=== PATIENT | male | born 1950 | race Hispanic/Latino ===

== ENCOUNTER 2017-07-31 06:58 | Day surgery (SDC) | payer OTHER ==
[2017-07-30 12:03] VITALS: BP 108/58
[2017-07-30 12:10] LABS: BASOPHILS % (AUTO) 1.5 % (0.0-5.0); EOSINOPHILS % (AUTO) 3.7 % (0.0-8.0); LYMPHOCYTES % (AUTO) 20.4 % (21.0-51.0); MEAN CORPUSCULAR HEMOGLOBIN 27.5 pg (27.0-33.0); MEAN CORPUSCULAR HGB CONC 33.8 g/dL (32.0-36.0); MEAN CORPUSCULAR VOLUME 81.3 fL (79-99); NEUTROPHILS % (AUTO) 64.4 % (40.0-77.0); NUCLEATED RED BLOOD CELLS 0.1 % (0.0-0.19); PLATELET COUNT (AUTO) 194 K/uL (130-400); RED BLOOD CELL COUNT(AUTO) 4.19 MIL/uL (4.50-6.20); RED CELL DISTRIBUTION WIDTH 16.8 % (11.0-15.5); WHITE BLOOD COUNT (AUTO) 5.3 K/uL (4.8-10.8)
[2017-07-30 12:14] LABS: APPEARANCE,URINE Clear (CLEAR); BILIRUBIN,URINE Negative (NEGATIVE); COLOR,URINE Yellow (YELLOW); GLUCOSE, URINE (UA) >=1000 mg/dL (NEGATIVE); KETONES,URINE Negative (NEGATIVE); LEUKOCYTE ESTERASE ,URINE Negative (NEGATIVE); NITRATE,URINE Negative (NEGATIVE); OCCULT BLOOD,URINE Negative (NEGATIVE); PROTEIN,URINE Negative (NEGATIVE); UROBILINOGEN,URINE 0.2 mg/dL (0.2-1.0)
[2017-07-30 12:16] LABS: CREATININE 1.7 mg/dL (0.5-1.5); POTASSIUM 5.2 mmol/L (3.5-5.1)
[2017-07-30 12:34] LABS: INR 0.94 (0.85-1.15); PARTIAL THROMBOPLASTIN TIME 26.1 SEC (26.3-35.5); PROTHROMBIN TIME 9.9 SEC (9.6-11.6)
[2017-07-30 12:35] LABS: WBC,URINE 0-1 /HPF (0-1)
[2017-07-30 12:36] LABS: BACTERIA,URINE Rare /HPF (None Seen); SQUAMOUS EPITHELIAL CELL,UR Rare /HPF (0-2); YEAST,URINE BUDDING Few /HPF (None Seen)
[2017-07-31] VITALS (10 sets, daily range): BP systolic 124–179; BP diastolic 63–96
[~2017-07-31] VITALS: Ht 172.7 cm; Wt 51.9 kg
[2017-07-31] MEDS: SODIUM CHLORIDE 0.9% 1000ML 1,000 ML IV SCH ×2 (08:30→13:41)
[2017-07-31] MEDS ORDERED: ASPI-555 PO (08:32)
[2017-07-31] MEDS ORDERED: RENEXA PO (08:40)
[2017-07-31] MEDS ORDERED: GLIP5TAB97 PO (08:40)
[2017-07-31] MEDS ORDERED: NITR0.4T50 SL (08:40)
[2017-07-31] MEDS ORDERED: METF10004 PO (08:40)
[2017-07-31] MEDS ORDERED: ALEN70TA47 PO (08:40)
[2017-07-31] MEDS ORDERED: METO-391 PO (08:40)
[2017-07-31] MEDS ORDERED: ISOS60TA4 PO (08:40)
[2017-07-31] MEDS ORDERED: ATOR40TA71 PO (08:40)
[2017-07-31] MEDS ORDERED: PIOG30TA70 PO (08:40)
[2017-07-31] MEDS: INSULIN HUMULIN R 100 UNIT/ML 3ML ONE ×2 (10:12→10:14)
[2017-07-31] MEDS ORDERED: INSULIN HUMULIN R 100 UNIT/ML 3ML SQ SCH ×2 (10:15→21:00)
[2017-07-31] MEDS ORDERED: ISOVUE-370 50ML VIAL IV ONE ×2 (13:38→16:18)
[2017-07-31] MEDS ORDERED: NITROGLYCERIN 5 MG/ML 10 ML VIAL IV ONE (13:38)
[2017-07-31] MEDS ORDERED: BIVALIRUDIN 250 MG/VIAL IV ONE (13:38)
[2017-07-31] MEDS ORDERED: LIDOCAINE HCL 2% 20ML ONE (13:38)
[2017-07-31] MEDS ORDERED: IOPAMIDOL-370 100 ML VIAL IV ONE ×2 (13:40→15:41)
[2017-07-31] MEDS ORDERED: MIDAZOLAM HCL 1 MG/ML 2ML VIAL ONE (15:41)
[2017-07-31] MEDS ORDERED: CLOPIDOGREL BISULFATE 300 MG TAB ONE (16:29)
[2017-07-31] MEDS ORDERED: ASPIRIN 325MG EC TAB 325 MG TABLET.DR PO ONE ×2 (16:29→16:31)
[2017-07-31] MEDS ORDERED: ACETAMINOPHEN 325 MG TAB PO PRN (17:30)
[2017-07-31] MEDS ORDERED: GLUCAGON 1MG KIT 1 MG ML IM PRN (17:30)
[2017-07-31] MEDS ORDERED: DEXTROSE 50%-WATER 50 ML DISP.SYRIN IV PRN (17:30)
== END 2017-07-31 23:00 | disposition home or self-care (01) ==
LOC: DAH 06:58
PROVIDERS: ATTEND Internal Medicine Cardiovascular Disease
DX: I25.708 Atherosclerosis of coronary artery bypass graft(s), unspecified, with other forms of angina pectoris (principal); E11.59 Type 2 diabetes mellitus with other circulatory complications; E78.5 Hyperlipidemia, unspecified; I10 Essential (primary) hypertension; Z95.1 Presence of aortocoronary bypass graft; Z90.49 Acquired absence of other specified parts of digestive tract; Z79.01 Long term (current) use of anticoagulants; Z79.899 Other long term (current) drug therapy; Z79.84 Long term (current) use of oral hypoglycemic drugs; Z79.4 Long term (current) use of insulin; R06.09 Other forms of dyspnea; R94.39 Abnormal result of other cardiovascular function study; I21.19 ST elevation (STEMI) myocardial infarction involving other coronary artery of inferior wall; Z95.5 Presence of coronary angioplasty implant and graft
CPT/HCPCS: 36415; 71045; 80048; 81001; 82948 ×2; 85025; 85610; 85730; 93005; 93459; 96360; 96361; A4606; C1725 ×2; C1760; C1769; C1874; C1887 ×2; C1894; C9604; J0583; J1644; J1815; J3490 ×2; J7030 ×2; Q9967 ×3; J2250

== ENCOUNTER 2023-05-31 12:18 | Inpatient (IN) | payer OTHER ==
[~2023-05-31] VITALS: Ht 167.6 cm; Wt 53.7 kg
[~2023-05-31 12:18] MED LIST: ALEN70TA80 PO; ASPI-556 PO; ATOR40TA71 PO; GLIP5TAB97 PO; ISOS60TA77 PO; METF-446 PO; METO-391 PO; NITR0.4T50 SL; PIOG30TA70 PO; RENEXA PO
[2023-05-31] MEDS ORDERED: INSU200I4 SQ (12:41)
[2023-05-31] MEDS ORDERED: EMPA25TA PO (12:41)
[2023-05-31] MEDS ORDERED: FAMO20TA8 PO (12:41)
[2023-05-31] MEDS ORDERED: INSU200I SQ (12:41)
[2023-05-31] MEDS ORDERED: OMEP40CA21 PO (12:41)
[2023-05-31] MEDS ORDERED: ATOR-2 PO (12:41)
[2023-05-31] MEDS ORDERED: CLOP75TA32 PO (12:41)
[2023-05-31] MEDS ORDERED: METO-408 PO (12:41)
[2023-05-31 13:33] LABS: MEAN CORPUSCULAR HEMOGLOBIN 26.3 pg (27.0-33.0); MEAN CORPUSCULAR HGB CONC 31.9 g/dL (32.0-36.0); MEAN CORPUSCULAR VOLUME 82.4 fL (79-99); RED BLOOD CELL COUNT(AUTO) 3.76 MIL/uL (4.50-6.20); RED CELL DISTRIBUTION WIDTH 16.3 % (11.0-15.5); WHITE BLOOD COUNT (AUTO) 9.2 K/uL (4.8-10.8)
[2023-05-31 13:56] LABS: CREATININE 1.6 mg/dL (0.5-1.3); POTASSIUM 4.7 mmol/L (3.5-5.1)
[2023-05-31 14:09] LABS: ALBUMIN 2.8 g/dL (3.5-5.0); BILIRUBIN,TOTAL 0.6 mg/dL (0.2-1.0); THYROID STIMULATING HORMONE 1.91 uIU/mL (0.36-3.74); TOTAL PROTEIN, SERUM 6.3 g/dL (6.0-8.3)
[2023-05-31] MEDS ORDERED: ONDANSETRON 4MG INJ IVP PRN (15:30)
[2023-05-31] MEDS: PHARMACY COMMUNICATION MISC SCH (15:30)
[2023-05-31 15:47] LABS: INR <= 0.93 (0.85-1.15); PROTHROMBIN TIME 10.6 SEC (9.6-11.6)
[2023-05-31 15:48] LABS: PARTIAL THROMBOPLASTIN TIME 31.3 SEC (26.3-35.5)
[2023-05-31 15:52] LABS: % IRON SATURATION 7.3 % (30-44)
[2023-05-31 16:07] LABS: MAGNESIUM 2.4 mg/dL (1.80-2.40)
[2023-05-31] MEDS: PANTOPRAZOLE 40 MG/VIAL IVP SCH (16:12)
[2023-05-31] MEDS: ASPIRIN 81 MG EC TAB PO ONE (16:12)
[2023-05-31] MEDS: GUAIFENESIN-DM 200/20 MG 10 ML PO PRN (16:12)
[2023-05-31] MEDS: ENOXAPARIN SODIUM 60 MG/0.6 ML SQ SCH (16:13)
[2023-05-31] MEDS: FUROSEMIDE 20MG VIAL IV SCH (16:13)
[2023-05-31] MEDS: CEFTRIAXONE 1G VIAL IVPB SCH (16:13)
[2023-05-31 16:33] LABS: HEMOGLOBIN A1C 8.1 % (4.0-6.0)
[2023-05-31 16:40] VITALS: BP 116/71; PULSE 111; RESP 18
[2023-05-31 18:04] VITALS: O2SAT 93
[2023-05-31] MEDS: BUDESONIDE 0.5 MG/2 ML INH IH SCH (18:32)
[2023-05-31 18:34] VITALS: PULSE 104; RESP 18
[2023-05-31] MEDS: ACETAMINOPHEN 500 MG TABLET PO PRN (18:41)
[2023-05-31 19:15] VITALS: BP 98/61; PULSE 91; RESP 18
[2023-05-31 20:00] VITALS: O2SAT 93
[2023-05-31 20:02] LABS: CREATININE,URINE RANDOM 11.67 mg/dL (30-135)
[2023-05-31 20:16] LABS: PROTEIN,URINE RANDOM 6.1 mg/dL (0-11.9)
[2023-05-31] MEDS ORDERED: IPRATROPIUM 0.5 MG/2.5 ML INH IH PRN (20:30)
[2023-05-31 20:40] LABS: APPEARANCE,URINE CLEAR (CLEAR); BILIRUBIN,URINE NEGATIVE (NEGATIVE); COLOR,URINE COLORLESS (YELLOW); GLUCOSE, URINE (UA) >=1000 mg/dL (NEGATIVE); KETONES,URINE 5 mg/dL (NEGATIVE); LEUKOCYTE ESTERASE ,URINE 75 Leu/uL (NEGATIVE); NITRATE,URINE NEGATIVE (NEGATIVE); OCCULT BLOOD,URINE SMALL (NEGATIVE); PROTEIN,URINE NEGATIVE (NEGATIVE); UROBILINOGEN,URINE 0.2 mg/dL (0.2-1.0)
[2023-05-31 20:41] LABS: ADD UA MICROSCOPIC YES
[2023-05-31] MEDS: ATORVASTATIN 40 MG TABLET PO SCH (20:45)
[2023-05-31 20:47] LABS: MUCUS,URINE RARE LPF (None Seen); SQUAMOUS EPITHELIAL CELL,UR RARE /HPF (0-2)
[2023-05-31 23:47] LABS: SARS-CoV-2, RNA, NAAT NEGATIVE SARS CoV-2 (NEGATIVE)
[2023-05-31 23:50] LABS: INFLUENZA TYPE A Negative For Type A (NEGATIVE); INFLUENZA TYPE B Negative For Type B (NEGATIVE)
[2023-06-01] VITALS (12 sets, daily range): BP systolic 103–125; BP diastolic 61–72; PULSE 87–100; RESP 18–20; O2SAT 93–96
[2023-06-01 04:07] LABS: BASOPHILS # (AUTO) 0.09 K/uL (0.00-0.20); BASOPHILS % (AUTO) 0.8 % (0.0-5.0); EOSINOPHILS # (AUTO) 0.21 K/uL (0.00-0.70); EOSINOPHILS % (AUTO) 1.9 % (0.0-8.0); HEMATOCRIT 35.1 % (42-54); IMMATURE GRANULOCYTE ABSOLUTE 0.04 K/uL (0-1); LYMPHOCYTES # (AUTO) 1.1 K/uL (1.0-4.8); LYMPHOCYTES % (AUTO) 10.2 % (21.0-51.0); MEAN CORPUSCULAR HEMOGLOBIN 26.5 pg (27.0-33.0); MEAN CORPUSCULAR HGB CONC 31.1 g/dL (32.0-36.0); MEAN CORPUSCULAR VOLUME 85.4 fL (79-99); MONOCYTES # (AUTO) 1.4 K/uL (0.1-1.0); MONOCYTES % (AUTO) 12.6 % (3.0-13.0); NEUTROPHILS % (AUTO) 74.1 % (40.0-77.0); PLATELET COUNT (AUTO) 217 K/uL (130-400); RED BLOOD CELL COUNT(AUTO) 4.11 MIL/uL (4.50-6.20); RED CELL DISTRIBUTION WIDTH 16.4 % (11.0-15.5); WHITE BLOOD COUNT (AUTO) 10.8 K/uL (4.8-10.8)
[2023-06-01 04:26] LABS: BILIRUBIN,TOTAL 0.7 mg/dL (0.2-1.0); CREATININE 1.8 mg/dL (0.5-1.3); MAGNESIUM 2.3 mg/dL (1.80-2.40); POTASSIUM 4.7 mmol/L (3.5-5.1); TOTAL PROTEIN, SERUM 6.9 g/dL (6.0-8.3)
[2023-06-01] MEDS: METOPROLOL SUCCINATE 25 MG TAB.SR.24H PO SCH (08:59)
[2023-06-01] MEDS: Vitamin B Complex/Vit C/Folic Acid PO SCH (08:59)
[2023-06-01] MEDS: ASPIRIN 81MG CHEW TAB PO SCH (08:59)
[2023-06-01] MEDS: CLOPIDOGREL 75MG TAB PO SCH (08:59)
[2023-06-01] MEDS ORDERED: ENOXAPARIN SODIUM 40 MG/0.4 ML SYRINGE SQ SCH (09:00)
[2023-06-01] MEDS: ZOLPIDEM TARTRATE 5 MG TAB PO SCH (21:10)
[2023-06-02] VITALS (9 sets, daily range): BP systolic 106–125; BP diastolic 61–69; PULSE 81–98; RESP 18–20; O2SAT 93–96
[2023-06-02 04:18] LABS: MAGNESIUM 2.1 mg/dL (1.80-2.40); POTASSIUM 4.1 mmol/L (3.5-5.1)
[2023-06-02 04:24] LABS: BASOPHILS # (AUTO) 0.07 K/uL (0.00-0.20); BASOPHILS % (AUTO) 0.7 % (0.0-5.0); HEMATOCRIT 33.6 % (42-54); IMMATURE GRANULOCYTE ABSOLUTE 0.04 K/uL (0-1); LYMPHOCYTES % (AUTO) 9.4 % (21.0-51.0); MEAN CORPUSCULAR HEMOGLOBIN 26.6 pg (27.0-33.0); MEAN CORPUSCULAR HGB CONC 31.8 g/dL (32.0-36.0); MEAN CORPUSCULAR VOLUME 83.6 fL (79-99); MONOCYTES # (AUTO) 1.3 K/uL (0.1-1.0); MONOCYTES % (AUTO) 12.7 % (3.0-13.0); NEUTROPHILS # (AUTO) 7.8 K/uL (1.8-7.7); NEUTROPHILS % (AUTO) 75.8 % (40.0-77.0); PLATELET COUNT (AUTO) 215 K/uL (130-400); RED BLOOD CELL COUNT(AUTO) 4.02 MIL/uL (4.50-6.20); RED CELL DISTRIBUTION WIDTH 16.1 % (11.0-15.5); WHITE BLOOD COUNT (AUTO) 10.2 K/uL (4.8-10.8)
[2023-06-02 05:32] LABS: WBC MORPHOLOGY CONSISTENT W/DIFF
[2023-06-02 05:54] LABS: B-TYPE NATRIURETIC PEPTIDE 2150 pg/mL (0-100)
[2023-06-02] MEDS ORDERED: POTASSIUM CHLORIDE 20MEQ/100ML 100 ML IV PRN (06:30)
[2023-06-02] MEDS ORDERED: POTASSIUM CHLORIDE 10% ELIXIR 20 MEQ/15 ML UDCUP PO PRN (06:30)
[2023-06-02] MEDS ORDERED: GLUCAGON 1MG KIT 1 MG ML IM PRN (06:30)
[2023-06-02] MEDS: INSULIN HUMULIN R 100 UNIT/ML 3ML SQ SCH (06:38)
[2023-06-02] MEDS: DOXYCYCLINE HYCLATE 100 MG TABLET PO SCH (12:12)
[2023-06-02 14:41] LABS: CHOLESTEROL 135 mg/dL (<200); HDL CHOLESTEROL 70 mg/dL (29-71); LDL DIRECT 49 mg/dL (0-99); TRIGLYCERIDES 80 mg/dL (30-200)
[2023-06-02] MEDS: BENZONATATE 100 MG CAPSULE PO PRN (20:18)
[2023-06-03] VITALS (13 sets, daily range): BP systolic 102–118; BP diastolic 58–72; PULSE 75–94; RESP 17–20; O2SAT 84–97
[2023-06-03 03:39] LABS: BASOPHILS # (AUTO) 0.08 K/uL (0.00-0.20); BASOPHILS % (AUTO) 0.7 % (0.0-5.0); EOSINOPHILS # (AUTO) 0.48 K/uL (0.00-0.70); EOSINOPHILS % (AUTO) 4.3 % (0.0-8.0); HEMATOCRIT 34.1 % (42-54); IMMATURE GRANULOCYTE ABSOLUTE 0.05 K/uL (0-1); LYMPHOCYTES # (AUTO) 1.2 K/uL (1.0-4.8); LYMPHOCYTES % (AUTO) 10.2 % (21.0-51.0); MEAN CORPUSCULAR HEMOGLOBIN 26.7 pg (27.0-33.0); MEAN CORPUSCULAR VOLUME 83.6 fL (79-99); MONOCYTES # (AUTO) 1.3 K/uL (0.1-1.0); MONOCYTES % (AUTO) 11.8 % (3.0-13.0); NEUTROPHILS # (AUTO) 8.1 K/uL (1.8-7.7); NEUTROPHILS % (AUTO) 72.6 % (40.0-77.0); PLATELET COUNT (AUTO) 212 K/uL (130-400); RED BLOOD CELL COUNT(AUTO) 4.08 MIL/uL (4.50-6.20); RED CELL DISTRIBUTION WIDTH 16.2 % (11.0-15.5); WHITE BLOOD COUNT (AUTO) 11.2 K/uL (4.8-10.8)
[2023-06-03 03:48] LABS: CREATININE 1.9 mg/dL (0.5-1.3); MAGNESIUM 1.9 mg/dL (1.80-2.40); PHOSPHORUS 3.2 mg/dL (2.5-4.9); POTASSIUM 3.6 mmol/L (3.5-5.1)
[2023-06-03] MEDS: KCL 20 MEQ ERTAB PO PRN (04:43)
[2023-06-03] MEDS: MAGNESIUM 2GM PREMIX 50ML 50 ML IV PRN (04:44)
[2023-06-03] MEDS: ENOXAPARIN SODIUM 60 MG/0.6 ML SQ SCH (09:47)
[2023-06-03] MEDS: ACETYLCYSTEINE 10% 100MG/ML 4ML VIAL IH SCH (18:43)
[2023-06-03] MEDS: IPRATROPIUM 0.5 MG/2.5 ML INH IH SCH (18:44)
[2023-06-04] VITALS (14 sets, daily range): BP systolic 103–118; BP diastolic 59–72; PULSE 83–97; RESP 16–22; O2SAT 93–97
[2023-06-04 03:52] LABS: BASOPHILS # (AUTO) 0.07 K/uL (0.00-0.20); BASOPHILS % (AUTO) 0.7 % (0.0-5.0); EOSINOPHILS # (AUTO) 0.42 K/uL (0.00-0.70); HEMATOCRIT 32.5 % (42-54); IMMATURE GRANULOCYTE ABSOLUTE 0.04 K/uL (0-1); LYMPHOCYTES # (AUTO) 1.2 K/uL (1.0-4.8); LYMPHOCYTES % (AUTO) 11.3 % (21.0-51.0); MEAN CORPUSCULAR HEMOGLOBIN 26.4 pg (27.0-33.0); MEAN CORPUSCULAR HGB CONC 32.3 g/dL (32.0-36.0); MEAN CORPUSCULAR VOLUME 81.9 fL (79-99); MONOCYTES % (AUTO) 9.5 % (3.0-13.0); NEUTROPHILS # (AUTO) 7.8 K/uL (1.8-7.7); NEUTROPHILS % (AUTO) 74.1 % (40.0-77.0); PLATELET COUNT (AUTO) 253 K/uL (130-400); RED BLOOD CELL COUNT(AUTO) 3.97 MIL/uL (4.50-6.20); RED CELL DISTRIBUTION WIDTH 15.9 % (11.0-15.5); WHITE BLOOD COUNT (AUTO) 10.5 K/uL (4.8-10.8)
[2023-06-04 04:09] LABS: ALBUMIN 2.5 g/dL (3.5-5.0); BILIRUBIN,TOTAL 0.5 mg/dL (0.2-1.0); MAGNESIUM 2.6 mg/dL (1.80-2.40); POTASSIUM 4.1 mmol/L (3.5-5.1); TOTAL PROTEIN, SERUM 6.7 g/dL (6.0-8.3)
[2023-06-04] MEDS: MILRINONE-D5W 20 MG/100 ML 100 ML IV SCH (11:05)
[2023-06-04] MEDS: SODIUM CHLORIDE 3% FOR INHALATION 4 ML/AMP VIAL.NEB IH ONE (11:12)
[2023-06-04 14:54] LABS: CREATININE 2.1 mg/dL (0.5-1.3); POTASSIUM 3.9 mmol/L (3.5-5.1)
[2023-06-04] MEDS: LACTULOSE 20 GM/30 ML UDCUP PO ONE (15:31)
[2023-06-04] MEDS: ZOSYN 3.375GM +NS 50ML IV SCH (15:42)
[2023-06-04] MEDS: SODIUM CHLORIDE 7% INHALATION 4 ML VIAL.NEB IH ONE (18:27)
[2023-06-05] VITALS (15 sets, daily range): BP systolic 103–122; BP diastolic 57–66; PULSE 84–103; RESP 16–20; O2SAT 96
[2023-06-05 04:11] LABS: BASOPHILS # (AUTO) 0.07 K/uL (0.00-0.20); BASOPHILS % (AUTO) 0.8 % (0.0-5.0); EOSINOPHILS # (AUTO) 0.52 K/uL (0.00-0.70); EOSINOPHILS % (AUTO) 6.1 % (0.0-8.0); HEMATOCRIT 31.5 % (42-54); IMMATURE GRANULOCYTE ABSOLUTE 0.04 K/uL (0-1); LYMPHOCYTES # (AUTO) 1.1 K/uL (1.0-4.8); LYMPHOCYTES % (AUTO) 12.2 % (21.0-51.0); MEAN CORPUSCULAR HEMOGLOBIN 26.6 pg (27.0-33.0); MEAN CORPUSCULAR HGB CONC 32.7 g/dL (32.0-36.0); MEAN CORPUSCULAR VOLUME 81.4 fL (79-99); MONOCYTES % (AUTO) 11.9 % (3.0-13.0); NEUTROPHILS # (AUTO) 5.9 K/uL (1.8-7.7); NEUTROPHILS % (AUTO) 68.5 % (40.0-77.0); PLATELET COUNT (AUTO) 223 K/uL (130-400); RED BLOOD CELL COUNT(AUTO) 3.87 MIL/uL (4.50-6.20); WHITE BLOOD COUNT (AUTO) 8.6 K/uL (4.8-10.8)
[2023-06-05 04:33] LABS: ALBUMIN 2.1 g/dL (3.5-5.0); BILIRUBIN,TOTAL 0.5 mg/dL (0.2-1.0); CREATININE 1.9 mg/dL (0.5-1.3); MAGNESIUM 2.3 mg/dL (1.80-2.40); PHOSPHORUS 3.6 mg/dL (2.5-4.9); POTASSIUM 3.7 mmol/L (3.5-5.1); TOTAL PROTEIN, SERUM 5.8 g/dL (6.0-8.3)
[2023-06-05] MEDS: SODIUM CHLORIDE 3% FOR INHALATION 4 ML/AMP VIAL.NEB IH ONE ×3 (06:35→18:24)
[2023-06-05] MEDS ORDERED: RENAL DOSE IV PRN (11:30)
[2023-06-05] MEDS: FUROSEMIDE 20MG VIAL IV SCH (11:32)
[2023-06-05] MEDS: ZOSYN 3.375GM +NS 50ML IV SCH (18:13)
[2023-06-06] VITALS (17 sets, daily range): BP systolic 102–141; BP diastolic 58–74; PULSE 90–142; RESP 16–22; O2SAT 93–96
[2023-06-06 04:08] LABS: HEMATOCRIT 28.4 % (42-54); MEAN CORPUSCULAR HEMOGLOBIN 26.6 pg (27.0-33.0); MEAN CORPUSCULAR HGB CONC 33.1 g/dL (32.0-36.0); MEAN CORPUSCULAR VOLUME 80.2 fL (79-99); RED BLOOD CELL COUNT(AUTO) 3.54 MIL/uL (4.50-6.20); RED CELL DISTRIBUTION WIDTH 15.9 % (11.0-15.5)
[2023-06-06 04:33] LABS: BILIRUBIN,TOTAL 0.4 mg/dL (0.2-1.0); CREATININE 2.1 mg/dL (0.5-1.3); POTASSIUM 3.6 mmol/L (3.5-5.1); TOTAL PROTEIN, SERUM 5.7 g/dL (6.0-8.3)
[2023-06-06] MEDS: DIGOXIN 250 MCG/ML 2ML AMP IV ONE (06:47)
[2023-06-06] MEDS ORDERED: DILTIAZEM 125 MG/25 ML INJ 125 MG in 0.9%NACL 100ML 100 ML IV SCH (07:30)
[2023-06-06] MEDS: DILTIAZEM 25MG INJ IVP ONE (08:40)
[2023-06-06] MEDS ORDERED: PHARMACY COMMUNICATION MISC SCH (12:00)
[2023-06-06] MEDS: TRESIBA 200 UNIT/ML SQ SCH (21:00)
[2023-06-06] MEDS: DICLOFENAC TOPICAL TP PRN (22:12)
[2023-06-07] VITALS (14 sets, daily range): BP systolic 101–136; BP diastolic 56–82; PULSE 98–110; RESP 16–22; O2SAT 93–97
[2023-06-07 03:40] LABS: MEAN CORPUSCULAR HEMOGLOBIN 26.4 pg (27.0-33.0); MEAN CORPUSCULAR HGB CONC 33.1 g/dL (32.0-36.0); MEAN CORPUSCULAR VOLUME 79.7 fL (79-99); RED BLOOD CELL COUNT(AUTO) 3.64 MIL/uL (4.50-6.20); RED CELL DISTRIBUTION WIDTH 15.9 % (11.0-15.5); WHITE BLOOD COUNT (AUTO) 9.8 K/uL (4.8-10.8)
[2023-06-07 04:02] LABS: ALBUMIN 2.3 g/dL (3.5-5.0); BILIRUBIN,TOTAL 0.4 mg/dL (0.2-1.0); CREATININE 1.9 mg/dL (0.5-1.3); MAGNESIUM 2.1 mg/dL (1.80-2.40); POTASSIUM 4.3 mmol/L (3.5-5.1); TOTAL PROTEIN, SERUM 6.1 g/dL (6.0-8.3)
[2023-06-07] MEDS: SOLU-MEDROL 40MG VIAL IVP SCH (10:37)
[2023-06-07] MEDS: FUROSEMIDE 20MG VIAL IV SCH ×2 (10:37→22:44)
[2023-06-08] VITALS (13 sets, daily range): BP systolic 116–128; BP diastolic 56–67; PULSE 67–111; RESP 16–20; O2SAT 93–95
[2023-06-08 04:05] LABS: MEAN CORPUSCULAR HEMOGLOBIN 25.7 pg (27.0-33.0); MEAN CORPUSCULAR HGB CONC 32.1 g/dL (32.0-36.0); MEAN CORPUSCULAR VOLUME 80.1 fL (79-99); RED BLOOD CELL COUNT(AUTO) 3.62 MIL/uL (4.50-6.20); WHITE BLOOD COUNT (AUTO) 10.5 K/uL (4.8-10.8)
[2023-06-08 04:27] LABS: ALBUMIN 2.4 g/dL (3.5-5.0); BILIRUBIN,TOTAL 0.4 mg/dL (0.2-1.0); CREATININE 2.1 mg/dL (0.5-1.3); MAGNESIUM 2.2 mg/dL (1.80-2.40); POTASSIUM 4.2 mmol/L (3.5-5.1); TOTAL PROTEIN, SERUM 6.2 g/dL (6.0-8.3)
[2023-06-08] MEDS: SODIUM CHLORIDE 3% FOR INHALATION 4 ML/AMP VIAL.NEB IH ONE ×3 (06:16→18:40)
[2023-06-08] MEDS: INSULIN GLARGINE 100 UNITS/ML 10 ML VIAL SQ ONE (12:33)
[2023-06-08] MEDS: BUMETANIDE 1MG/4ML VIAL IVP SCH (16:43)
[2023-06-08] MEDS: INSULIN GLARGINE 100 UNITS/ML 10 ML VIAL SQ SCH (16:43)
[2023-06-08] MEDS: INSULIN HUMULIN R 100 UNIT/ML 3ML SQ ONE (16:57)
[2023-06-08] MEDS: BUDESONIDE 0.5 MG/2 ML INH IH SCH (18:39)
[2023-06-08] MEDS ORDERED: INSULIN GLARGINE 100 UNITS/ML 10 ML VIAL SQ SCH (21:00)
[2023-06-09] VITALS (25 sets, daily range): BP systolic 107–136; BP diastolic 58–81; PULSE 82–117; RESP 15–37; O2SAT 93–97
[2023-06-09 04:31] LABS: HEMATOCRIT 27.6 % (42-54); MEAN CORPUSCULAR HEMOGLOBIN 26.9 pg (27.0-33.0); MEAN CORPUSCULAR HGB CONC 33.7 g/dL (32.0-36.0); MEAN CORPUSCULAR VOLUME 79.8 fL (79-99); NUCLEATED RED BLOOD CELLS 0.2 % (0.0-0.19); RED BLOOD CELL COUNT(AUTO) 3.46 MIL/uL (4.50-6.20); RED CELL DISTRIBUTION WIDTH 15.9 % (11.0-15.5); WHITE BLOOD COUNT (AUTO) 15.6 K/uL (4.8-10.8)
[2023-06-09 04:57] LABS: ALBUMIN 2.2 g/dL (3.5-5.0); BILIRUBIN,TOTAL 0.4 mg/dL (0.2-1.0); CREATININE 2.4 mg/dL (0.5-1.3); MAGNESIUM 2.5 mg/dL (1.80-2.40); POTASSIUM 3.8 mmol/L (3.5-5.1); TOTAL PROTEIN, SERUM 5.9 g/dL (6.0-8.3)
[2023-06-09] MEDS: SOLU-MEDROL 40MG VIAL IVP SCH ×2 (05:28→18:46)
[2023-06-09] MEDS: TUBERCULIN, PURIFIED PROTEIN DERIVATIVE 5 TU/0.1 ML SYG ID SCH (10:33)
[2023-06-09] MEDS: MORPHINE 2 MG SYG IVP ONE (11:09)
[2023-06-09] MEDS: INSULIN GLARGINE 100 UNITS/ML 10 ML VIAL SQ ONE (12:33)
[2023-06-09 16:56] LABS: ABG BASE EXCESS -4.5 mmol/L (-2.0-3.0); ABG HCO3 19.2 mmol/L (21.0-28.0); ABG OXYGEN SATURATION 92.4 % (95.0-99.0); ABG PCO2 31 mmHg (35-48); ABG PH 7.412 (7.35-7.450); CARBON MONOXIDE 0.4; HHb 7.6; PO2, ARTERIAL BG 69.6 mmHg (83.0-108.0); VENT MODE, BG 2 L NC (ROOM AIR)
[2023-06-09 18:08] LABS: RHEUMATOID ARTHRITIS FACTOR 14.7 IU/mL (<14.0)
[2023-06-09] MEDS: INSULIN REGULAR, HUMAN 3ML 100 UNIT in 0.9%NACL 100ML 99 ML IV PRN (18:43)
[2023-06-09] MEDS ORDERED: INSULIN GLARGINE 100 UNITS/ML 10 ML VIAL SQ SCH (21:00)
[2023-06-09] MEDS: DOXYCYCLINE HYCLATE 100 MG TABLET PO SCH (21:05)
[2023-06-09] MEDS: DEXTROSE 50%-WATER 50 ML DISP.SYRIN IV PRN (22:18)
[2023-06-10] VITALS (38 sets, daily range): BP systolic 104–125; BP diastolic 47–88; PULSE 90–109; RESP 17–44; O2SAT 90–97
[2023-06-10 05:01] LABS: MEAN CORPUSCULAR HEMOGLOBIN 25.9 pg (27.0-33.0); MEAN CORPUSCULAR VOLUME 78.5 fL (79-99); NUCLEATED RED BLOOD CELLS 0.1 % (0.0-0.19); RED BLOOD CELL COUNT(AUTO) 3.82 MIL/uL (4.50-6.20); RED CELL DISTRIBUTION WIDTH 16.2 % (11.0-15.5); WHITE BLOOD COUNT (AUTO) 19.8 K/uL (4.8-10.8)
[2023-06-10 05:47] LABS: ALBUMIN 2.3 g/dL (3.5-5.0); BILIRUBIN,TOTAL 0.4 mg/dL (0.2-1.0); CREATININE 2.5 mg/dL (0.5-1.3); MAGNESIUM 2.9 mg/dL (1.80-2.40); POTASSIUM 4.3 mmol/L (3.5-5.1); TOTAL PROTEIN, SERUM 6.1 g/dL (6.0-8.3)
[2023-06-10] MEDS: PANTOPRAZOLE 40 MG/VIAL IVP SCH (08:23)
[2023-06-10] MEDS ORDERED: INSULIN GLARGINE 100 UNITS/ML 10 ML VIAL SQ SCH (09:00)
[2023-06-10] MEDS: INSULIN GLARGINE 100 UNITS/ML 10 ML VIAL SQ SCH (09:27)
[2023-06-10] MEDS: INSULIN HUMULIN R 100 UNIT/ML 3ML SQ SCH (11:20)
[2023-06-10 13:11] LABS: ALPHA-1-ANTITRYPSIN 342 mg/dL (101-187)
[2023-06-10 15:13] LABS: ATYPICAL P-ANCA AB <1:20 titer (Neg:<1:20); CYTOPLASMIC (C-ANCA) AB, IGG <1:20 titer (Neg:<1:20)
[2023-06-10] MEDS: HYDROCODONE/ACETAMINOPHEN 5/325 MG TAB PO PRN (23:36)
[2023-06-11] VITALS (29 sets, daily range): BP systolic 91–144; BP diastolic 54–83; PULSE 77–106; RESP 18–36; O2SAT 90–100
[2023-06-11 04:33] LABS: BASOPHILS # (AUTO) 0.02 K/uL (0.00-0.20); BASOPHILS % (AUTO) 0.1 % (0.0-5.0); HEMATOCRIT 32.3 % (42-54); IMMATURE GRANULOCYTE ABSOLUTE 0.22 K/uL (0-1); LYMPHOCYTES # (AUTO) 0.5 K/uL (1.0-4.8); LYMPHOCYTES % (AUTO) 2.4 % (21.0-51.0); MEAN CORPUSCULAR HEMOGLOBIN 26.2 pg (27.0-33.0); MEAN CORPUSCULAR HGB CONC 31.6 g/dL (32.0-36.0); NEUTROPHILS % (AUTO) 91.4 % (40.0-77.0); NUCLEATED RED BLOOD CELLS 0.2 % (0.0-0.19); PLATELET COUNT (AUTO) 332 K/uL (130-400); RED BLOOD CELL COUNT(AUTO) 3.89 MIL/uL (4.50-6.20); RED CELL DISTRIBUTION WIDTH 16.9 % (11.0-15.5); WHITE BLOOD COUNT (AUTO) 19.7 K/uL (4.8-10.8)
[2023-06-11 05:19] LABS: ALBUMIN 2.2 g/dL (3.5-5.0); BILIRUBIN,TOTAL 0.4 mg/dL (0.2-1.0); CREATININE 2.4 mg/dL (0.5-1.3); POTASSIUM 4.7 mmol/L (3.5-5.1)
[2023-06-11] MEDS: ZOSYN 3.375GM +NS 50ML IVPB SCH (08:37)
[2023-06-11] MEDS: BUMETANIDE 1MG/4ML VIAL IVP SCH (08:38)
[2023-06-11] MEDS: ACETYLCYSTEINE 10% 100MG/ML 4ML VIAL ONE (11:23)
[2023-06-11] MEDS: METOLAZONE 2.5 MG TABLET PO SCH (11:51)
[2023-06-11 14:17] LABS: ABG BASE EXCESS 1.6 mmol/L (-2.0-3.0); ABG HCO3 25.8 mmol/L (21.0-28.0); ABG OXYGEN SATURATION 98.6 % (95.0-99.0); ABG PCO2 39 mmHg (35-48); ABG PH 7.438 (7.35-7.450); CARBON MONOXIDE 0.3; HHb 1.4; PO2, ARTERIAL BG 160.1 mmHg (83.0-108.0)
[2023-06-11 15:15] LABS: MYOGLOBIN, SERUM 215 ng/mL (28-72)
[2023-06-11] MEDS: ACETYLCYSTEINE 10% 100MG/ML 4ML VIAL IH SCH (18:42)
[2023-06-11] MEDS: CEFEPIME HCL 2 GM VIAL IVPB SCH (19:02)
[2023-06-11] MEDS: ALPRAZOLAM 0.25 MG TABLET PO PRN (20:48)
[2023-06-12] VITALS (37 sets, daily range): BP systolic 90–120; BP diastolic 52–70; PULSE 80–93; RESP 11–45; O2SAT 96–100
[2023-06-12 00:09] LABS: QUANTIFERON MITOGEN VALUE 0.22 IU/mL (.)
[2023-06-12 08:54] LABS: CREATININE 2.4 mg/dL (0.5-1.3); POTASSIUM 4.9 mmol/L (3.5-5.1)
[2023-06-12] MEDS: SOLU-MEDROL 40MG VIAL IVP SCH (09:25)
[2023-06-12 10:11] LABS: HEMATOCRIT 34.8 % (42-54); MEAN CORPUSCULAR HEMOGLOBIN 26.3 pg (27.0-33.0); MEAN CORPUSCULAR HGB CONC 31.6 g/dL (32.0-36.0); MEAN CORPUSCULAR VOLUME 83.3 fL (79-99); PLATELET COUNT (AUTO) 308 K/uL (130-400); RED BLOOD CELL COUNT(AUTO) 4.18 MIL/uL (4.50-6.20); RED CELL DISTRIBUTION WIDTH 17.4 % (11.0-15.5); WHITE BLOOD COUNT (AUTO) 17.2 K/uL (4.8-10.8)
[2023-06-12 10:14] LABS: EOSINOPHILS % (MANUAL) 2 % (1-6); LYMPHOCYTES % (MANUAL) 10 % (22-44); MAN.DIFF COMMENT-IMPRESSION MANUAL DIFFERENTIAL; MONOCYTES % (MANUAL) 4 % (2-9); PLATELET MORPHOLOGY COMMENT ADEQUATE; SEGMENTED NEUTROPHILS % 84 % (40-70); TOTAL CELLS COUNTED 100
[2023-06-12] MEDS: BUMETANIDE 1MG/4ML VIAL IVP SCH (13:29)
[2023-06-12 14:29] LABS: APPEARANCE,URINE CLEAR (CLEAR); BILIRUBIN,URINE NEGATIVE (NEGATIVE); COLOR,URINE LIGHT-YELLOW (YELLOW); GLUCOSE, URINE (UA) NEGATIVE (NEGATIVE); KETONES,URINE NEGATIVE (NEGATIVE); LEUKOCYTE ESTERASE ,URINE 500 Leu/uL (NEGATIVE); NITRATE,URINE NEGATIVE (NEGATIVE); PROTEIN,URINE NEGATIVE (NEGATIVE); UROBILINOGEN,URINE 0.2 mg/dL (0.2-1.0)
[2023-06-12 14:30] LABS: ADD UA MICROSCOPIC YES
[2023-06-12 14:34] LABS: BACTERIA,URINE FEW /HPF (None Seen); MUCUS,URINE RARE LPF (None Seen); NON-SQUAMOUS EPITHELIAL CELL <1 /HPF (0-2); OTHER CASTS, URINE 4 /LPF (None Seen); SQUAMOUS EPITHELIAL CELL,UR RARE /HPF (0-2); UNCLASSIFIED CRYSTAL 2 /HPF (None Seen); WBC CLUMP RARE /HPF (0-1)
[2023-06-12] MEDS: FUROSEMIDE 20MG VIAL IV ONE (17:41)
[2023-06-12 22:02] LABS: CREATININE,URINE RANDOM 16.93 mg/dL (30-135)
[2023-06-13] VITALS (31 sets, daily range): BP systolic 91–137; BP diastolic 37–74; PULSE 75–94; RESP 10–25; O2SAT 93–96
[2023-06-13 05:07] LABS: HEMATOCRIT 32.3 % (42-54); MEAN CORPUSCULAR HEMOGLOBIN 26.3 pg (27.0-33.0); MEAN CORPUSCULAR HGB CONC 31.6 g/dL (32.0-36.0); MEAN CORPUSCULAR VOLUME 83.2 fL (79-99); NUCLEATED RED BLOOD CELLS 0.1 % (0.0-0.19); PLATELET COUNT (AUTO) 330 K/uL (130-400); RED BLOOD CELL COUNT(AUTO) 3.88 MIL/uL (4.50-6.20); WHITE BLOOD COUNT (AUTO) 15.2 K/uL (4.8-10.8)
[2023-06-13 05:19] LABS: INR <= 0.93 (0.85-1.15); PROTHROMBIN TIME 10.7 SEC (9.6-11.6)
[2023-06-13 05:20] LABS: PARTIAL THROMBOPLASTIN TIME 29.2 SEC (26.3-35.5)
[2023-06-13 05:25] LABS: % IRON SATURATION 16.3 % (30-44)
[2023-06-13 05:35] LABS: CREATININE 2.4 mg/dL (0.5-1.3); MAGNESIUM 3.3 mg/dL (1.80-2.40); PHOSPHORUS 6.1 mg/dL (2.5-4.9); POTASSIUM 4.2 mmol/L (3.5-5.1); TOTAL PROTEIN, SERUM 5.7 g/dL (6.0-8.3); URIC ACID 10.3 mg/dL (2.6-7.2)
[2023-06-13 06:19] LABS: BAND NEUTROPHILS % (MANUAL) 2 % (0-2); LYMPHOCYTES % (MANUAL) 6 % (22-44); MAN.DIFF COMMENT-IMPRESSION MANUAL DIFFERENTIAL; MONOCYTES % (MANUAL) 4 % (2-9); PLATELET MORPHOLOGY COMMENT ADEQUATE; REACTIVE LYMPHOCYTES 1 % (0-0); SEGMENTED NEUTROPHILS % 87 % (40-70); TOTAL CELLS COUNTED 100; WBC MORPHOLOGY REACTIVE LYMPHS 1+
[2023-06-13 12:14] LABS: BODY FLUID RBC 17506 /cu. mm.; BODY FLUID WBC 493 /cu. mm.
[2023-06-13 12:46] LABS: APPEARANCE BODY FLUID CLOUDY (CLEAR); COLOR,BODY FLUID ORANGE (LT YELLOW); SPECIMENTYPE,BODY FLUID PLEURAL; TOTAL VOLUME,BODY FLUID 500 mL
[2023-06-13 14:18] LABS: BF LYMPHOCYTE 41 %
[2023-06-13 14:19] LABS: BF MACROPHAGE 3; BF MESOTHELIAL 19 %; BF OTHER CELLS 17; BF TOTAL CELLS COUNTED 100
[2023-06-13] MEDS ORDERED: IRON SUCROSE COMPLEX 100 MG/5 ML VIAL IVP SCH (14:30)
[2023-06-13 14:57] LABS: GLUCOSE PLEURAL FLUID 84; PROTEIN PLEURAL FLUID 1.7 mg/dL
[2023-06-13] MEDS: IRON SUCROSE COMPLEX 300 MG in 0.9% NACL 250ML 250 ML IVP SCH (15:15)
[2023-06-13] MEDS: MELATONIN 5 MG TABLET PO PRN (20:04)
[2023-06-14] VITALS (23 sets, daily range): BP systolic 98–116; BP diastolic 43–75; PULSE 74–94; RESP 12–42; O2SAT 97–100
[2023-06-14 05:14] LABS: BASOPHILS # (AUTO) 0.01 K/uL (0.00-0.20); BASOPHILS % (AUTO) 0.1 % (0.0-5.0); EOSINOPHILS # (AUTO) 0.11 K/uL (0.00-0.70); EOSINOPHILS % (AUTO) 0.7 % (0.0-8.0); HEMATOCRIT 31.5 % (42-54); IMMATURE GRANULOCYTE ABSOLUTE 0.14 K/uL (0-1); LYMPHOCYTES # (AUTO) 0.5 K/uL (1.0-4.8); LYMPHOCYTES % (AUTO) 3.4 % (21.0-51.0); MEAN CORPUSCULAR HEMOGLOBIN 26.1 pg (27.0-33.0); MEAN CORPUSCULAR HGB CONC 31.7 g/dL (32.0-36.0); MEAN CORPUSCULAR VOLUME 82.2 fL (79-99); MONOCYTES # (AUTO) 0.8 K/uL (0.1-1.0); MONOCYTES % (AUTO) 5.5 % (3.0-13.0); NEUTROPHILS # (AUTO) 13.3 K/uL (1.8-7.7); NEUTROPHILS % (AUTO) 89.4 % (40.0-77.0); NUCLEATED RED BLOOD CELLS 0.1 % (0.0-0.19); PLATELET COUNT (AUTO) 304 K/uL (130-400); RED BLOOD CELL COUNT(AUTO) 3.83 MIL/uL (4.50-6.20); WHITE BLOOD COUNT (AUTO) 14.9 K/uL (4.8-10.8)
[2023-06-14 05:42] LABS: BILIRUBIN,TOTAL 0.7 mg/dL (0.2-1.0); CREATININE 2.5 mg/dL (0.5-1.3); MAGNESIUM 3.6 mg/dL (1.80-2.40); POTASSIUM 4.9 mmol/L (3.5-5.1); TOTAL PROTEIN, SERUM 5.8 g/dL (6.0-8.3)
[2023-06-14] MEDS: BUMETANIDE 1MG/4ML VIAL IVP SCH (11:42)
== END 2023-06-14 20:00 | DRG 177 ==
LOC: EDH 12:18 → EDHIP 12:26 → 2DH 13:26 → 2AH 06-08 01:07 → 2CH 06-09 18:16
PROVIDERS: ADMIT Internal Medicine; ATTEND Internal Medicine
PROC: 5A0935A Assistance with Respiratory Ventilation, Less than 24 Consecutive Hours, High Flow/Velocity Cannula (ICD-10-PCS; 2023-06-11)
PROC: 5A0935A Assistance with Respiratory Ventilation, Less than 24 Consecutive Hours, High Flow/Velocity Cannula (ICD-10-PCS; 2023-06-12)
PROC: 0W993ZZ Drainage of Right Pleural Cavity, Percutaneous Approach (ICD-10-PCS; principal; 2023-06-13)
PROC: 5A0935A Assistance with Respiratory Ventilation, Less than 24 Consecutive Hours, High Flow/Velocity Cannula (ICD-10-PCS; 2023-06-13)
PROC: 5A0935A Assistance with Respiratory Ventilation, Less than 24 Consecutive Hours, High Flow/Velocity Cannula (ICD-10-PCS; 2023-06-14)
DX: J69.0 Pneumonitis due to inhalation of food and vomit (principal); I21.4 Non-ST elevation (NSTEMI) myocardial infarction; I50.43 Acute on chronic combined systolic (congestive) and diastolic (congestive) heart failure; J96.01 Acute respiratory failure with hypoxia; I13.0 Hypertensive heart and chronic kidney disease with heart failure and stage 1 through stage 4 chronic kidney disease, or unspecified chronic kidney disease; E87.0 Hyperosmolality and hypernatremia; E87.20 Acidosis, unspecified; I69.351 Hemiplegia and hemiparesis following cerebral infarction affecting right dominant side; N30.00 Acute cystitis without hematuria; N17.9 Acute kidney failure, unspecified; D64.9 Anemia, unspecified; E11.22 Type 2 diabetes mellitus with diabetic chronic kidney disease; D63.1 Anemia in chronic kidney disease; Z20.822 Contact with and (suspected) exposure to COVID-19; E78.5 Hyperlipidemia, unspecified; F41.9 Anxiety disorder, unspecified; I08.1 Rheumatic disorders of both mitral and tricuspid valves; N18.30 Chronic kidney disease, stage 3 unspecified; G47.00 Insomnia, unspecified; E11.65 Type 2 diabetes mellitus with hyperglycemia; I25.10 Atherosclerotic heart disease of native coronary artery without angina pectoris; I25.5 Ischemic cardiomyopathy; I48.91 Unspecified atrial fibrillation; K21.9 Gastro-esophageal reflux disease without esophagitis; Z79.02 Long term (current) use of antithrombotics/antiplatelets; Z79.4 Long term (current) use of insulin; Z79.51 Long term (current) use of inhaled steroids; Z79.899 Other long term (current) drug therapy; Z82.49 Family history of ischemic heart disease and other diseases of the circulatory system; Z83.3 Family history of diabetes mellitus; Z90.49 Acquired absence of other specified parts of digestive tract; Z95.1 Presence of aortocoronary bypass graft; Z95.5 Presence of coronary angioplasty implant and graft
CPT/HCPCS: 36415; 36600; 71045; 71047; 71250; 74230; 76700; 76705; 76770; 80048; 80051; 80053; 80061; 81001; 82103; 82306; 82435; 82550; 82570; 82607; 82728; 82746; 82803; 82945; 82947; 82948; 83036; 83516; 83540; 83550; 83605; 83615; 83735; 83874; 83880; 83935; 83986; 84100; 84132; 84145; 84155; 84156; 84157; 84295; 84439; 84443; 84484; 84550; 85018; 85025; 85027; 85610; 85651; 85730; 86038; 86140; 86200; 86215; 86235; 86255; 86431; 86480; 86850; 86880; 86900; 86901; 87040; 87071; 87088; 87116; 87205; 87206; 87635; 87804; 89051; 92507; 92610; 92611; 93005; 93306; 93356; 93970; 94640; 94664; 94667; 94668; A4344; A6250; C9113; G0378; J0692; J0696; J1160; J1650; J1756; J1815; J1940; J2260; J2270; J2543; J2920; J3475; J3490; J7050; J7070; J7608